=== PATIENT | male | born 1965 | race Caucasian/White ===

== ENCOUNTER → 2022-03-29 13:35 | Outpatient (REF) | payer OTHER, SELFPAY | LOC: ANHLAB 13:35 | PROVIDERS: Visit Provider Nurse Practitioner | DX: C44.311 Basal cell carcinoma of skin of nose (principal) | CPT/HCPCS: 88305 ==

== ENCOUNTER → 2022-06-07 08:56 | Outpatient (REF) | payer OTHER, SELFPAY | LOC: ANHLAB 08:56 | PROVIDERS: Visit Provider Nurse Practitioner | DX: C44.311 Basal cell carcinoma of skin of nose (principal) | CPT/HCPCS: 88305; 88331 ==